=== PATIENT | male | born 2000 | race Caucasian/White ===

== ENCOUNTER 2025-09-02 23:17 | Emergency (ER) | payer OTHER ==
[2025-09-03 02:01] VITALS: BP 141/70; PULSE 89; RESP 18; TEMP 97.3; O2SAT 99
== END 2025-09-03 02:33 ==
LOC: EMS 23:52
DX: S06.0XAA Concussion with loss of consciousness status unknown, initial encounter (principal); Z98.890 Other specified postprocedural states; W01.0XXA Fall on same level from slipping, tripping and stumbling without subsequent striking against object, initial encounter; Y93.89 Activity, other specified; Y92.89 Other specified places as the place of occurrence of the external cause; Y99.8 Other external cause status
CPT/HCPCS: 70450; 99284